=== PATIENT | female | born 1955 | race Caucasian/White ===

== ENCOUNTER 2024-04-26 12:14 | Emergency (ER) | payer MEDICARE, MEDICAID ==
[~2024-04-26] VITALS: Ht 157.5 cm; Wt 65.9 kg
[2024-04-26] MEDS: IBUPROFEN 600 MG TABLET PO ONE (14:09)
[2024-04-26 17:22] VITALS: BP 136/67; PULSE 78; RESP 18; TEMP 98; O2SAT 97
[2024-04-26] MEDS ORDERED: IBUP-1492 PO (17:23)
== END 2024-04-26 17:42 | disposition home or self-care (01) ==
LOC: EMS 12:14
DX: S82.891A Other fracture of right lower leg, initial encounter for closed fracture (principal); F32.A Depression, unspecified; W01.0XXA Fall on same level from slipping, tripping and stumbling without subsequent striking against object, initial encounter; Y93.89 Activity, other specified; Y92.89 Other specified places as the place of occurrence of the external cause; Y99.8 Other external cause status
CPT/HCPCS: 29515; 99284; 73590-TC; 73610-TC; Z7502; Z7610